=== PATIENT | male | born 2005 | race Caucasian/White ===

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

== ENCOUNTER 2025-02-25 16:12 | Emergency (ER) | payer BC ==
[~2025-02-25] VITALS: Ht 177.8 cm; Wt 99.8 kg
[~2025-02-25 16:12] MED LIST changes: +CEPHALEXIN500 M1 PO
[2025-02-25] MEDS ORDERED: Acetaminophen/Oxycodone 5 MG/325 MG TABLET PO ONE (16:35)
[2025-02-25] MEDS ORDERED: Ondansetron Hydrochloride 4 MG TAB PO ONE (16:35)
[2025-02-25] MEDS ORDERED: NAPROSYN500 MG PO (17:28)
[2025-02-25] MEDS ORDERED: PERCOCET 5-3251 EACH PO (17:28)
[2025-02-25] MEDS ORDERED: Ondansetron4 MG PO (17:28)
== END 2025-02-25 17:37 | disposition home or self-care (01) ==
LOC: ED 16:12
DX: S62.396A Other fracture of fifth metacarpal bone, right hand, initial encounter for closed fracture (principal); J45.909 Unspecified asthma, uncomplicated; Z98.890 Other specified postprocedural states; Z88.8 Allergy status to other drugs, medicaments and biological substances; W08.XXXA Fall from other furniture, initial encounter; Y93.89 Activity, other specified; Y92.89 Other specified places as the place of occurrence of the external cause; Y99.8 Other external cause status

== ENCOUNTER → 2025-03-17 | Outpatient (CLI) | payer BC ==
[~2025-03-17] MED LIST changes: +NAPROSYN500 MG PO; +Ondansetron4 MG PO; +PERCOCET 5-3251 EACH PO
[2025-03-17 08:30] LABS: BASO # 0.1 10*3/uL (0.0-0.1); BASO % 0.8 % (0.0-1.0); EOS # 0.3 10*3/uL (0.0-0.4); EOS % 3.4 % (1.0-4.0); MEAN CELL VOLUME 86.5 fl (80.0-94.0); MEAN CORPUSCULAR HGB 27.9 pg (27.0-31.0); MEAN PLATELET VOLUME 9.1 fl (9.6-12.3); MONO # 0.7 10*3/uL (0.1-1.0); MONO % 9.9 % (3.0-9.0); NEUT # 4.3 10*3/uL (2.3-7.9); NEUT % 59.3 % (47.0-73.0); NUCLEATED RED BLOOD CELL 0.0 % (0.0-0.0); NUCLEATED RED BLOOD CELL 0.0 10*3/uL (0.0-0.0); PLATELET COUNT AUTOMATED 209 10*3/uL (130-400); RED CELL DISTRI WIDTH 12.6 % (0-14.5)
[2025-03-17 08:52] LABS: BILIRUBIN Negative (Negative); BLOOD Negative (Negative); BUN 11 mg/dl (9-23); CLARITY Clear (Clear); COLOR Yellow (Yellow); KETONE Negative (Negative); LEUKO ESTERASE Negative (Negative); NITRITE Negative (Negative); PH 6.0 (4.5-8.0); SPECIFIC GRAVITY 1.020 (1.001-1.030); UROBILINOGEN 1.0 E.U./dl (0.0-1.0)
[2025-03-17 08:57] LABS: VITAMIN D, 25-HYDROXY 32.6 ng/mL (30-100)
[2025-03-17 09:10] LABS: BACTERIA TRACE; MUCOUS 1+; WBC 0-2 wbc/hpf (0-5)
== END | disposition home or self-care (01) ==
LOC: LAB 07:53
PROVIDERS: ATTEND Internal Medicine Nephrology
DX: N25.81 Secondary hyperparathyroidism of renal origin (principal); E55.9 Vitamin D deficiency, unspecified; N18.2 Chronic kidney disease, stage 2 (mild)